=== PATIENT | female | born 1940 | race Caucasian/White ===

== ENCOUNTER 2022-05-05 12:01 | Emergency (ER) | payer MEDICARE, BC ==
[~2022-05-05] VITALS: Ht 157.5 cm; Wt 66.2 kg
[2022-05-05] MEDS ORDERED: LEVOTHYROXINE (12:15)
[2022-05-05] MEDS ORDERED: LIPITOR (12:15)
[2022-05-05] MEDS ORDERED: NEXIUM (12:15)
[2022-05-05] MEDS ORDERED: OLME5TAB3 (12:15)
--- NOTE | 2022-05-05 12:15 | NUR ---
at bedside for evaluation.
[2022-05-05 12:37] LABS: HEMATOCRIT 34.2 % (31.2-41.9); MEAN CORPUSCULAR HEMOGLOBIN 26.7 uug (24.7-32.8); MEAN CORPUSCULAR VOLUME 82.4 fL (75.5-95.3); PLATELET COUNT (AUTO) 223 K/uL (179-408)
[2022-05-05 12:44] LABS: CARBON DIOXIDE 32 mmol/L (21-32); CHLORIDE 104 mmol/L (98-107); CREATININE 0.9 mg/dL (0.6-1.3); GLUCOSE 102 mg/dL (74-106); POTASSIUM 3.8 mmol/L (3.5-5.1); UREA NITROGEN, BLOOD 16 mg/dL (7-18)
[2022-05-05] MEDS ORDERED: AMOX500C2 PO (13:09)
[2022-05-05 13:12] VITALS: BP 135/86
--- NOTE | 2022-05-05 13:18 | NUR ---
Patient discharged to home in stable condition. Written and verbal after care instructions given. Patient and pt's daughter verbalize understanding of instructions. Stressed follow up or return to ER for worsening s/s.
== END 2022-05-05 13:19 | disposition home or self-care (01) ==
LOC: ER 12:01
DX: I10 Essential (primary) hypertension (principal); H66.91 Otitis media, unspecified, right ear; E78.5 Hyperlipidemia, unspecified; K21.9 Gastro-esophageal reflux disease without esophagitis; E03.9 Hypothyroidism, unspecified; Z79.2 Long term (current) use of antibiotics; Z79.899 Other long term (current) drug therapy
CPT/HCPCS: 36415; 71045; 84484; 85025; 93005; A4663